=== PATIENT | male | born 1965 | race Caucasian/White ===

== ENCOUNTER 2019-02-12 14:23 | Emergency (ER) | payer OTHER ==
[~2019-02-12] VITALS: Ht 193 cm; Wt 119.3 kg
[2019-02-12 16:37] VITALS: BP 138/80
== END 2019-02-12 17:23 | disposition home or self-care (01) ==
LOC: ER 14:23
DX: S86.912A Strain of unspecified muscle(s) and tendon(s) at lower leg level, left leg, initial encounter (principal); I10 Essential (primary) hypertension; X50.0XXA Overexertion from strenuous movement or load, initial encounter; Y93.89 Activity, other specified; Y99.8 Other external cause status; Y92.89 Other specified places as the place of occurrence of the external cause
CPT/HCPCS: 93971

== ENCOUNTER 2019-06-30 10:47 | Emergency (ER) | payer OTHER ==
[~2019-06-30] VITALS: Ht 193 cm; Wt 117.9 kg
[2019-06-30 11:21] VITALS: BP 128/83
[2019-06-30] MEDS ORDERED: KETOROLAC TROMETH 60MG/2ML VIAL IM ONE (12:30)
== END 2019-06-30 12:53 | disposition home or self-care (01) ==
LOC: ER 10:47
DX: M51.36 Other intervertebral disc degeneration, lumbar region (principal); G89.29 Other chronic pain; I10 Essential (primary) hypertension
CPT/HCPCS: 72100; 96372; 99283; J1885